=== PATIENT | male | born 1930 | race Native Hawaiian/Other Pacific Islander ===

== ENCOUNTER → 2019-04-22 | Outpatient (CLI) | payer MEDICARE, BC | END | disposition home or self-care (01) | LOC: LABWHC1 09:26 | PROVIDERS: ATTEND Urology | DX: R97.20 Elevated prostate specific antigen [PSA] (principal) | CPT/HCPCS: 36415; 84153 ==

== ENCOUNTER 2019-09-02 07:39 | Day surgery (SDC) | payer MEDICARE, BC ==
[2019-08-31 08:24] VITALS: BMI 30.1
[~2019-09-02 07:39] MED LIST: ALPRAZolam 0.25 MG TAB PO PRN; ALPRAZolam 0.5 MG TAB PO PRN; ASPIRIN 325 MG TAB PO ONE; ATORVASTATIN 80 MG TAB PO ONE; NITROGLYCERIN SL TABS 0.4 MG TAB SUBLINGUAL PRN; SODIUM CHLORIDE 0.9% 1,000 ML in EMPTY BAG 1 BAG IV ONE
[2019-09-02 08:05] VITALS: RESP 16; TEMP 98.3
[2019-09-02] MEDS ORDERED: SODIUM CHLORIDE 0.9% 1,000 ML IV ONE (08:07)
[2019-09-02 08:13] LABS: Basophils # (A) 0.1 k/uL (0-0.2); Basophils % (A) 2 %; Eosinophils # (A) 0.5 k/uL (0-0.7); Eosinophils % (A) 8 %; HCT 43.6 % (39.0-53.0); HGB 14.2 gm/dL (13.0-17.5); Lymphocytes # (A) 1.6 k/uL (1.0-4.8); Lymphocytes % (A) 23 %; MCH 30.7 pg (25.0-35.0); MCHC 32.7 g/dL (31.0-37.0); MCV 93.8 fL (80.0-100.0); Mean Platelet Volume 7.7; Monocytes # (A) 0.3 k/uL (0-1.0); Monocytes % (A) 5 %; Neutrophils % (A) 60 %; Platelet Count 266 k/uL (150-450); RBC 4.64 m/uL (4.30-5.90); RDW 13.8 % (11.5-15.5); WBC 6.7 k/uL (3.8-10.6)
[2019-09-02 08:23] LABS: Calcium 9.7 mg/dL (8.4-10.2); Potassium 4.2 mmol/L (3.5-5.1)
[2019-09-02] MEDS: BENZOCAINE SPRAY 1 CAN MUCOUS MEM ONE ×2 (08:38→08:44)
[2019-09-02] MEDS: MIDAZOLAM 2 MG/2 ML VIAL IVP ONE ×2 (08:44→08:49)
[2019-09-02] MEDS: fentaNYL (PF) 50 MCG/ML 2 ML AMP IVP ONE ×2 (08:44→08:49)
[2019-09-02] MEDS ORDERED: MIDAZOLAM 2 MG/2 ML VIAL IVP ONE ×2 (08:49→09:23)
[2019-09-02] MEDS ORDERED: IV FLUID CONTINUATION 800 ML IV ONE (09:23)
[2019-09-02] MEDS ORDERED: LIDOCAINE 1% INJ 10MG/ML (20 ML MDV) SQ ONE (09:23)
[2019-09-02] MEDS ORDERED: IOPAMIDOL-370 125ML BTL INJ ONE (09:40)
[2019-09-02] MEDS ORDERED: RX INFO: IV CONTRAST WAS GIVEN 1 EACH MISC MISCELLANE PRN (09:44)
[2019-09-02] MEDS ORDERED: SODIUM CHLORIDE 0.9% 1,000 ML IV SCH (09:45)
--- NOTE | 2019-09-02 09:50 | ECHOT ---
TRANSESOPHAGEAL ECHOCARDIOGRAM DATE OF SERVICE: September 02, 2019 PERFORMING PHYSICIAN: Ricky Garcia MD, protocol officer. PROCEDURE PERFORMED: Transesophageal echocardiogram. INDICATION: This is a pleasant 89-year-old gentleman who was diagnosed recently with severe aortic stenosis. COMPLICATION: None. LEVEL OF SEDATION: Moderate with sedation length of 15 minutes. PROCEDURE DESCRIPTION: After obtaining an informed consent, the patient was brought to the transesophageal echocardiogram suite. The patient was turned into left lateral position. A bite guard was placed. The throat was sprayed using lidocaine. The patient was given a total of 3 mg of Versed and 50 mcg of fentanyl on divided doses. After that, the transesophageal echocardiogram was advanced through the bite guard to the mid esophagus where 2D echocardiogram images as well as color Doppler images of various cardiac structures were obtained. So we did interrogate the aortic valve using 2D echo, color Doppler, as well as continuous wave Doppler. After that, the transesophageal echocardiogram was advanced to the stomach where we did transgastric views. The procedure was completed without any complication. FINDINGS: The left ventricular dimension and systolic function appeared to be within normal limits. The right ventricle appeared to be within normal limits for dimension. The left atrium appeared to be mildly dilated. The left atrial appendage appeared to be free from any thrombus. 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 The aortic valve is extremely calcified and seems to be trileaflet valve with evidence of severe aortic stenosis with a peak gradient of 173 and mean of 87 mmHg. There was mild to moderate mitral regurgitation seen. The mitral valve seems to be also thickened and calcified with moderate mitral regurgitation. There was mild tricuspid regurgitation and mild pulmonic insufficiency. The aortic root appeared to be slightly dilated. CONCLUSION: 1. Normal left ventricular dimension and systolic function with an ejection fraction of about 55%. 2. There is mild concentric left ventricular hypertrophy. 3. Normal right ventricular dimension and systolic function. 4. Mildly dilated left atrium. 5. Normal left atrial appendage without any evidence of thrombus. 6. 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 7. Aortic sclerosis with evidence of severe aortic stenosis and a peak gradient of 173 and mean of 87 mmHg. 8. Thickened mitral valve leaflets with moderate mitral regurgitation. 9. Mild tricuspid regurgitation. 10.Mild pulmonic insufficiency. 11.Mildly dilated aortic root. 12.No evidence of pericardial effusion. MMODL / IJN: [id number] /
--- NOTE | 2019-09-02 09:54 | P.PCN ---
Date of Procedure: 09/02/19 Operative Findings: CARDIAC CATHETERIZATION PERFORMING PHYSICIAN: Ricky Garcia MD, RPVI PROCEDURE PERFORMED: 1. Right heart catheterization 2. Selective right and left coronary angiogram INDICATION: This is a pleasant 89-year-old gentleman with a past medical history significant for hypertension who was experiencing progressive exertional dyspnea. He underwent an echocardiogram which revealed evidence of severe aortic stenosis and moderate aortic regurgitation as well as moderate mitral regurgitation. The transesophageal echocardiogram confirmed the severity of the aortic stenosis and the patient was brought to undergo right and left heart catheterization. COMPLICATION: None APPROACH: Right common femoral vein Right common femoral artery LEVEL OF SEDATION: Moderate with sedation length of 20 minutes PROCEDURE DESCRIPTION: After obtaining an informed consent, the patient was brought to cardiac cath lab tech. Local anesthesia was performed using lidocaine subcutaneously. The right common femoral vein was cannulated using micropuncture technique, the micro puncture wire passed easily, then I placed an 8-Pashto sheath in the right common femoral vein. The right common femoral artery was cannulated using Seldinger technique, the guidewire passed easily, following that we advanced a 6 Pashto sheath dilator assembly, the wire and dilator were removed and sheath was flushed. Subsequently I did right heart catheterization using 6-Pashto [place] catheter. Selective right and left coronary angiogram using a 6-Pashto JR4 and JL catheters. The procedure was completed there was no complication. HEMODYNAMICS: 1. The pulmonary capillary wedge pressure was 13 mmHg 2. PA pressures were as follow systolic 29, diastolic 12 and mean of 19 mmHg 3. RV pressures were as follow systolic 26 and end-diastolic of 10 mmHg 4. RA pressure was 7 mmHg SELECTIVE CORONARY ANGIOGRAM: The right coronary artery: Is a large caliber vessel and its a dominant vessel. The RCA is angiographically normal. Distally bifurcates into PDA and PLV branches both appeared to be angiographically normal. Left main: It is angiographically normal. Bifurcates into left circumflex, ramus intermedius, and left anterior descending artery The left circumflex: Is a large caliber vessel and nondominant vessel. The left circumflex is angiographically normal. It gives rises into OM branch which seems to be angiographically normal. The ramus intermedius: Is a moderate to large caliber vessel. Its angiographically normal. The left anterior descending artery: It is a large caliber vessel. It has mild disease in the proximal portion. It gives rises into the first diagonal branch which is a large caliber vessel seems to be angiographically normal. The mid LAD appears to be angiographically normal. It gives rises into second diagonal branch which seems to be angiographically normal. The LAD distally is a small caliber vessel and does not reach the apex. CONCLUSION: #1 normal right heart pressures #2 mild nonobstructive coronary artery disease POSTPROCEDURE MANAGEMENT: The patient's need to undergo aortic valve replacement either surgically or percutaneously.
[2019-09-02] MEDS ORDERED: hydrALAZINE HCL 20 MG/ML 1 ML VIAL IVP PRN (11:47)
[2019-09-02 14:58] VITALS: BP 137/65; PULSE 54
== END 2019-09-02 16:50 | disposition home or self-care (01) ==
LOC: CATHCVL 07:39
PROVIDERS: ATTEND Internal Medicine Interventional Cardiology
DX: I08.8 Other rheumatic multiple valve diseases (principal); I25.3 Aneurysm of heart; I77.810 Thoracic aortic ectasia; I25.10 Atherosclerotic heart disease of native coronary artery without angina pectoris; I11.9 Hypertensive heart disease without heart failure; Z79.899 Other long term (current) drug therapy
CPT/HCPCS: 93312; 93320; 93325; 93456; 80048; 85025; C1894 ×2; C1769 ×2; J2250; J0360; J2001; J3010; Q9967

== ENCOUNTER → 2019-11-07 | Outpatient (CLI) | payer MEDICARE, BC ==
[2019-11-07 17:01] LABS: African American GFR (CKD) 69.6 (60.0-200.0)
== END | disposition home or self-care (01) ==
LOC: LABWHC1 08:49
DX: I35.0 Nonrheumatic aortic (valve) stenosis (principal)
CPT/HCPCS: 36415; 82565; 84520